=== PATIENT | female | born 1975 | race Caucasian/White ===

== ENCOUNTER 2020-07-12 15:56 | Outpatient (REF) | payer BC, SELFPAY ==
--- NOTE | 2020-07-12 | MM_ITS ---
EXAMINATION: MM SCREENING DIGITAL BREAST TOMOSYNTHESIS, BILATERAL CLINICAL INFORMATION: Screening. Asymptomatic. The lifetime risk of breast cancer based on the Tyrer-Cuzick Model is 12%. COMPARISON: None. This is the patient's baseline mammographic examination. TECHNIQUE: Digital breast tomosynthesis is performed in both the craniocaudal and mediolateral oblique views along with computer-aided detection (CAD). Synthesized 2D images are generated from the tomosynthesis. FINDINGS: There are scattered areas of fibroglandular density (ACR BI-RADS breast composition Category b). Left breast: No suspicious masses, calcifications, architectural distortion, or other abnormalities are seen. Right breast: A 0.9 cm oval isodense mass is noted on the mediolateral oblique view tomosynthesis images (27 of 60) in the posterior third, 8 cm from nipple. It is likely present in the lateral breast. A second area of focal asymmetry/mass is noted in the lower inner quadrant anterior third. No suspicious calcifications or other abnormalities are seen. MM/MM tomosynthesis screening BI IMPRESSION: 1. No mammographic evidence of malignancy in the left breast. 2. Obscured mass and focal asymmetry in the right breast. ASSESSMENT: BI-RADS 0: Incomplete - Need Additional Imaging Evaluation. RECOMMENDATION: 1. Additional views of the right breast are recommended. Recommend spot compression right craniocaudal and spot compression right mediolateral oblique views utilizing tomosynthesis technique. 2. Targeted ultrasound if warranted after review of the additional views. 3. Radiology department staff will contact the patient for additional imaging. This patient's information was entered into a reminder system with a target due date for their next mammogram.
== END 2020-07-12 15:57 | disposition home or self-care (01) ==
LOC: HO.MAMMO 15:56
PROVIDERS: PCP Internal Medicine; Visit Provider Internal Medicine
DX: Z12.31 Encounter for screening mammogram for malignant neoplasm of breast (principal)
CPT/HCPCS: 77063; 77067

== ENCOUNTER 2020-07-13 09:08 | Day surgery (SDC) | payer BC, SELFPAY ==
[2020-07-06 14:49] VITALS: BMI 26.6
--- NOTE | 2020-07-12 10:52 | HO.ANESPROP2 ---
Documented by User: Lynda Smith 07/12/20 10:53 HPI - Anesthesia Eval Consult details Narrative: 45yo F for Colonoscopy: fam hx [facility] Past Medical History Medical History No significant past medical history Surgical History Surgical History Hx of section Social History Social History Smoking Status: Never smoker Use of substances other than those prescribed or required for medical reasons: No Have you been hit, kicked, punched, or otherwise hurt by someone within the past year? If so, by whom?: No Advance Directives: No Advance Directives Information Provided: No Advance Directives on File: No Recently lost weight without trying: No Meds Allergies Allergy/AdvReac Type Severity Reaction Status Date / Time No Known Allergies Allergy Mild NOT Unverified 07/06/20 14:48 APPLICABLE Home Medications Medication Instructions Recorded Confirmed Type No Known Home Meds 07/06/20 07/06/20 History Exam Exam Date and Time: July 12, 2020 1052 Height,Weight and Vital Signs: Height 5 ft 5 in Weight 72.575 kg Assessment and Plan Assessment Anesthesia Assessment: Chart Reviewed Documented by User: Rolando Herrera 07/13/20 10:47 [facility] Past Medical History Medical History No significant past medical history Surgical History Surgical History Hx of section Social History Social History Smoking Status: Never smoker Use of substances other than those prescribed or required for medical reasons: No Have you been hit, kicked, punched, or otherwise hurt by someone within the past year? If so, by whom?: No Advance Directives: No Advance Directives Information Provided: No Advance Directives on File: No Recently lost weight without trying: No Meds Allergies Allergy/AdvReac Type Severity Reaction Status Date / Time No Known Allergies Allergy Mild NOT Unverified 07/06/20 14:48 APPLICABLE Home Medications Medication Instructions Recorded Confirmed Type No Known Home Meds 07/06/20 07/06/20 History Exam Airway Mallampati Class: II TM Dist: >3cm Neck ROM: Full Loose/Missing/Broken Teeth: No Heart: [id number] Lungs: cta b/l Assessment and Plan Assessment Anesthesia Assessment: Anesthesia Plan Discussed, Smoking Cess. Discussed, PAT Visit and Chart Reviewed Final Anesthetic Review NPO: Yes ASA Class: II Final Preanesthetic Review: No Changes in Pt Med Stat, Consent Obtained/Reviewed and Anes Risks/Benef Reviewed Patient Risk: Low Procedure Risk: Low Assessment/Block/Sedation in SS: Assess/Block/Sedation-SS Anesthetic Plan Anesthetic Plan: MAC: Disposition: Standard PACU
[2020-07-13 10:25] VITALS: BP 110/76; PULSE 87; RESP 20; TEMP 37; O2SAT 99; BMI 19.1
[2020-07-13 10:34] LABS: UPreg QC Valid YES; Urine Pregnancy NEGATIVE (NEGATIVE)
--- NOTE | 2020-07-13 10:46 | MHC.SHP ---
Pre-Procedural Eval Section A The patient is an INPATIENT: No The History & Physical has been completed within 30 days and I have reviewed it.: No Section B Chief Complaint: Colon cancer screening, FAMILY HX OF COLON POLYPS Details of Present Illness: A 45-year-old female referred with family history of colon cancer -PGM at 60- Twin brother- had 2 adenoma-as well as her mother has had colon polyps since age 50. She has no GI complaints. She has a good appetite, a normal bowel pattern. Relevant Family History (Specify if Yes): Yes Relevant Social History: None Present Medications: None Medical History: Significant History (Fatigue) Allergies: Allergies Allergy/AdvReac Type Severity Reaction Status Date / Time No Known Allergies Allergy Mild NOT Unverified 07/06/20 14:48 APPLICABLE Review of Systems Sugical H&P ROS: Negative: Constitution, Cardiovascular, Respiratory and Gastrointestinal Exam Surgical H&P Exam: Normal: Heart, Normal: Lungs, Normal: Extremities and Normal: Abdomen Plan Diagnosis/Plan: Unchanged Patient has been examined and remains a candidate for the planned procedure
[2020-07-13 11:48] VITALS: BP 98/50; PULSE 86; RESP 16; TEMP 36.3; O2SAT 100
[2020-07-13 12:06] VITALS: BP 99/60; PULSE 81; RESP 18; O2SAT 97
[2020-07-13 12:21] VITALS: BP 112/74; PULSE 76; RESP 18; O2SAT 100
--- NOTE | 2020-07-13 12:40 | HO.POSTANES ---
Post Anesthesia Evaluation Post Anesthesia Evaluation Vital Signs: Vital Signs Temp Pulse Resp BP Pulse Ox 07/13/20 12:21 97.3 F 76 18 112/74 100 07/13/20 12:06 81 18 99/60 97 07/13/20 11:48 97.3 F 86 16 98/50 L 100 07/13/20 10:25 98.6 F 87 20 110/76 99 Anesthesia: Monitored Mental Status: Awake Pain Control: Satisfactory Nausea/Vomiting: None Hydration: Adequate Anesthesia-Related Issues: No Anes. Related Issues
--- NOTE | 2020-07-13 17:43 | W.PM.OPN ---
Operative Note Operative Note Narrative: Date of procedure: 07/13/20 Pre-op diagnosis: Colon cancer screening, family history colon cancer and polyps. Post-op diagnosis: other (Diverticulosis, hemorrhoids) Procedure: COLONOSCOPY TILL CECUM Consent: Indications for the procedure and potential complications of bleeding, perforation, reaction to medications and missed diagnosis were discussed with the patient and informed consent was obtained. Instrument: Olympus PCF H 190 L variable stiffness pediatric colonoscope Monitoring: Vital signs and clinical assessment, intermittent blood pressure monitoring, continuous EKG monitoring, Pulse oximetry and Carbon Dioxide monitoring were done throughout the procedure. Colon withdrawl time was 24 minutes. Procedure: The patient was placed in the left lateral decubitis position and pre-procedure medications were administered. After a digital rectal examination of the ano-rectum, the video colonoscope was inserted into the rectum and advanced through the colon to the cecum. The colonoscope was slowly withdrawn in a retrograde panoramic fashion and the colon mucosa was carefully examined including a retroflexed view of the rectum. Findings and interventions are described below. Procedure Difficulty: Without difficulty Findings: Terminal Ileum: Not evaluated Cecum: Normal Ascending Colon: Normal Transverse Colon: Normal Descending Colon: Moderate diverticulosis Sigmoid Colon: Severe diverticulosis with luminal narrowing Rectum: Normal Ano-rectum: Moderate internal hemorrhoids Colon preparation: Good after copious irrigation Impression and Post Procedure Diagnosis: Colonoscopy Findings: No polyps were detected. Moderate to severe diverticulosis seen in the left colon Small hemorrhoids on retroflexed exam. Plan: Repeat Colonoscopy in 5 years for a family history colon cancer and colon polyps. Above findings were reviewed with the patient and a handout on diverticulosis was given in the discharge area Surgeon: Stefany Hughes MD Anesthesia: MAC (Deborah Gudino CRNA) Merchant Patroller: Jerry Davidson Estimated blood loss (mL): 0 Pathology: none sent Condition: stable Disposition: PACU
== END 2020-07-13 12:40 | disposition home or self-care (01) ==
PROVIDERS: Nurse Practitioner; Visit Provider Internal Medicine Gastroenterology
PROC: 0DJD8ZZ Inspection of Lower Intestinal Tract, Via Natural or Artificial Opening Endoscopic (ICD-10-PCS; CPT 45378; principal; 2020-07-13 11:30)
DX: Z12.11 Encounter for screening for malignant neoplasm of colon (principal); Z80.0 Family history of malignant neoplasm of digestive organs; Z83.71 Family history of colonic polyps; K57.30 Diverticulosis of large intestine without perforation or abscess without bleeding; K64.8 Other hemorrhoids
CPT/HCPCS: 45378; 81025

== ENCOUNTER 2020-07-27 14:25 | Outpatient (REF) | payer BC, SELFPAY ==
--- NOTE | 2020-07-27 | MM_ITS ---
EXAMINATION: MM DIAGNOSTIC DIGITAL BREAST TOMOSYNTHESIS, RIGHT US DIAGNOSTIC ULTRASOUND BREAST, RIGHT CLINICAL INFORMATION: Recall from baseline screening for 2 areas, possible mass lower inner quadrant and also posterior upper outer quadrant. TC score 12%. No known family history breast cancer. Age 45. COMPARISON: Mammography: 07/12/2020 (baseline). TECHNIQUE: Digital breast tomosynthesis is performed. 2D images are generated from the tomosynthesis. The following views are obtained: 3-D spot CC outer, 3-D spot CC inner, 3-D spot MLO upper, 3-D spot MLO lower. Ultrasound right breast is targeted to the lower inner quadrant and also the 9:00 to 10:00 position. Grayscale imaging and color Doppler are performed without and with harmonics. FINDINGS: There are scattered areas of fibroglandular density (ACR BI-RADS breast composition Category b). Additional views of the lower inner quadrant demonstrate fibroglandular densities without underlying mass or architectural abnormality. Additional views upper outer quadrant demonstrate smooth oval nodule with partly obscured margins measuring approximately 8 x 5 mm. Ultrasound upper outer quadrant demonstrates a circumscribed mildly hypoechoic nodule 9:00 position 8 cm from nipple measuring 0.7 x 0.4 cm. There is no increased or decreased through transmission of sound. No definite color flow. No architectural abnormality or focal duct ectasia. Finding may represent a benign fibroadenoma. Ultrasound lower inner quadrant demonstrates no cystic or solid mass, architectural abnormality, or focal duct ectasia. No ultrasound correlate. The parenchymal asymmetry on mammography may be reassessed at time of six-month follow-up mammography. Management: Results are discussed with the patient at time of visit. The finding upper outer quadrant is likely a benign fibroadenoma and may be reassessed in 6 months with right diagnostic mammography and follow-up targeted right breast ultrasound. The parenchymal asymmetry anterior lower inner quadrant is likely unremarkable fibroglandular tissue and may be reassessed again at time of follow-up mammography in 6 months. MM/MM tomosynthesis added view BI IMPRESSION: 1. Oval nodule 9:00 position measuring under 1 cm, suspect benign fibroadenoma. 2. Probable benign parenchymal asymmetry anterior lower inner quadrant. No ultrasound correlate. ASSESSMENT: BI-RADS 3: Probably Benign RECOMMENDATION: Diagnostic right mammography and targeted right breast ultrasound in 6 months. This patient's information was entered into a reminder system with a target due date for their next mammogram.
== END 2020-07-27 14:26 | disposition home or self-care (01) ==
LOC: HO.MAMMO 14:25
PROVIDERS: Visit Provider Internal Medicine
DX: R92.8 Other abnormal and inconclusive findings on diagnostic imaging of breast (principal)
CPT/HCPCS: 76642; 77062; 78016

== ENCOUNTER → 2020-08-04 08:26 | Outpatient (BNVA) | payer BC, SELFPAY | PROVIDERS: Visit Provider Physician Assistant | DX: Z76.89 Persons encountering health services in other specified circumstances (principal) ==

== ENCOUNTER 2020-09-25 07:23 | Outpatient (REF) | payer BC, SELFPAY | END 2020-09-25 07:24 | disposition home or self-care (01) | LOC: HO.LAB 07:23 | PROVIDERS: PCP Internal Medicine; Visit Provider Internal Medicine | DX: Z20.822 Contact with and (suspected) exposure to COVID-19 (principal) | CPT/HCPCS: 36415; C9803; U0003 ==

== ENCOUNTER 2021-03-02 10:50 | Outpatient (REF) | payer BC, SELFPAY ==
--- NOTE | ~2021-03-02 | MM_ITS ---
EXAMINATION: MM DIAGNOSTIC DIGITAL BREAST TOMOSYNTHESIS, RIGHT US DIAGNOSTIC ULTRASOUND BREAST, RIGHT CLINICAL INFORMATION: Short interval six-month follow-up probable benign parenchymal asymmetry lower inner right breast, and follow-up oval nodule 9:00 position likely fibroadenoma, both noted at initial baseline imaging. No known family history breast cancer. The lifetime risk of breast cancer based on the Tyrer-Cuzick Model is 12%. COMPARISON: Mammography: 07/27/2020, 07/12/2020 (baseline), targeted right breast ultrasound 07/27/2020. TECHNIQUE: Digital breast tomosynthesis is performed in both the craniocaudal and mediolateral oblique views along with computer-aided detection (CAD). Synthesized 2D images are generated from the tomosynthesis. Additional right spot MLO view obtained. Ultrasound right breast is targeted to the 7:00 through 11:00 position. Grayscale imaging and color Doppler are performed without and with harmonics. FINDINGS: There are scattered areas of fibroglandular density (ACR BI-RADS breast composition Category b). Parenchymal pattern is similar to baseline exam. There is no developing density or interval mass or architectural abnormality. No abnormal calcifications. Ultrasound demonstrates stable oval circumscribed hypoechoic nodule 9:00 position 8 cm from nipple measuring under 1 cm. This most likely represents fibroadenoma and will be reassessed again with targeted ultrasound at annual bilateral mammography, due in 6 months. Results are discussed with the patient at time of visit. MM/MM tomosynthesis diagnostic RT IMPRESSION: 1. There are no significant changes from baseline exam. No mammographic evidence of malignancy. 2. Stable circumscribed nodule 9:00 right breast, likely fibroadenoma. ASSESSMENT: BI-RADS 3: Probably Benign RECOMMENDATION: Diagnostic mammography and targeted right breast ultrasound at time of annual bilateral mammography, due in 6 months. This patient's information was entered into a reminder system with a target due date for their next mammogram.
== END 2021-03-02 10:51 | disposition home or self-care (01) ==
LOC: HO.MAMMO 10:50
PROVIDERS: Visit Provider Internal Medicine
DX: R92.2 Inconclusive mammogram (principal)
CPT/HCPCS: 76642; 77061; 77065

== ENCOUNTER 2021-05-03 08:43 | Outpatient (REF) | payer BC, SELFPAY ==
[2021-05-03 10:40] LABS: MANUAL DIFF FLAG NO
[2021-05-03 10:43] LABS: Basophils Percent Auto 0.9 % (0-2); Eosinophils Absolute Auto 0.1 X10*3/uL (0.0-0.4); Eosinophils Percent Auto 2.1 % (0-4); Hemoglobin 9.5 g/dl (12.0-16.0); Imm Gran Abs Auto 0.01 X10*3/uL (0.00-0.03); Imm Gran Pct Auto 0.3 % (0.0-0.4); Lymphocytes Absolute Auto 1.3 X10*3/uL (1.2-4.9); Lymphocytes Percent Auto 39.2 % (20-40); Mean Corpuscular HGB Conc 29.7 g/dl (31.0-35.0); Mean Corpuscular Hemoglobin 22.5 pg (27.0-33.0); Mean Corpuscular Volume 75.8 fL (80-98); Mean Platelet Volume 10.7 fL (9.4-12.3); Monocytes Absolute Auto 0.3 X10*3/uL (0.1-1.2); Monocytes Percent Auto 9.7 % (2-11); Neutrophils Absolute Auto 1.6 X10*3/uL (2.0-8.3); Neutrophils Percent Auto 47.8 % (45-73); Platelet Count 305 X10*3/uL (160-400); Red Blood Count 4.22 X10*6/uL (4.20-5.50); Red Cell Distribution Width 17.3 % (11.0-16.0); White Blood Count 3.3 X10*3/uL (4.8-10.8)
[2021-05-03 11:57] LABS: Alanine Aminotransferase 10 U/L (0-31); Albumin Level 4.1 g/dL (3.5-5.0); Alkaline Phosphatase 41 U/L (39-117); Anion Gap 13 (12-20); Aspartate Amino Transferase 15 U/L (5-31); Bilirubin Total 0.4 mg/dL (0.0-1.0); Blood Urea Nitrogen 13 mg/dL (9-16); Calcium 8.8 mg/dL (8.4-10.2); Carbon Dioxide 25 mmol/L (22-29); Chloride 107 mmol/L (96-108); Cholesterol 169 mg/dL; Estimated Glomerular Filt Rate > 60; Glucose Fasting 87 mg/dL (60-99); HDL Cholesterol 70 mg/dL; LDL Cholesterol Calculated 89 mg/dl; Potassium 3.9 mmol/L (3.3-5.1); Sodium 141 mmol/L (135-145); Total Protein 6.5 g/dL (6.5-8.0); Triglycerides 54 mg/dL
[2021-05-07 14:01] LABS: Vitamin D 25-OH, D2 <4 ng/mL; Vitamin D 25-OH, D3 44 ng/mL; Vitamin D 25-OH, Total 44 ng/mL (30-100)
== END 2021-05-03 08:44 | disposition home or self-care (01) ==
LOC: HO.WFDLDS 08:43
PROVIDERS: Visit Provider Internal Medicine
DX: E66.3 Overweight (principal); E78.5 Hyperlipidemia, unspecified; D64.9 Anemia, unspecified; E55.9 Vitamin D deficiency, unspecified
CPT/HCPCS: 36415; 80053; 80061; 82306; 85025

== ENCOUNTER 2021-09-06 12:49 | Outpatient (REF) | payer BC, SELFPAY ==
--- NOTE | ~2021-09-06 | MM_ITS ---
EXAMINATION: MM DIAGNOSTIC DIGITAL BREAST TOMOSYNTHESIS, BILATERAL US DIAGNOSTIC ULTRASOUND BREAST, RIGHT CLINICAL INFORMATION: Due for yearly. Also follow-up probable benign parenchymal asymmetry lower inner right breast and probable benign oval nodule 9:00 right breast, likely fibroadenoma. The lifetime risk of breast cancer based on the Tyrer-Cuzick Model is 12%. COMPARISON: Mammography: 03/02/2021, 07/27/2020, 07/12/2020 (baseline, BI-RADS 0); targeted ultrasound right breast 07/27/2020, 03/02/2021. TECHNIQUE: Digital breast tomosynthesis is performed in both the craniocaudal and mediolateral oblique views along with computer-aided detection (CAD). Synthesized 2D images are generated from the tomosynthesis. Ultrasound right breast is targeted to the outer quadrant 7:00 through 11:00 position. Grayscale imaging and color Doppler are performed without and with harmonics. FINDINGS: There are scattered areas of fibroglandular density (ACR BI-RADS breast composition Category b). Parenchymal pattern is similar to prior study. There is no interval developing density or mass or architectural abnormality. Parenchymal asymmetry inner right breast on CC view is stable from prior studies and now considered benign. The smooth oval nodule 9:00 right breast is less conspicuous, stable on ultrasound and now considered benign. There are no abnormal calcifications. The axilla and skin contours are unremarkable. Ultrasound right breast demonstrates smooth oval nodule under 1 cm 9:00 position approximately 8 cm from nipple. The size and contour are stable from prior studies. Finding is now considered to be benign. Statistically, this is likely a small fibroadenoma. Results are discussed with the patient at time of visit. MM/MM tomosynthesis screening BI IMPRESSION: No mammographic evidence of malignancy. Findings for follow-up on right are stable and now considered to be benign. ASSESSMENT: BI-RADS 2: Benign RECOMMENDATION: Routine annual mammography screening. This patient's information was entered into a reminder system with a target due date for their next mammogram.
== END 2021-09-06 12:50 | disposition home or self-care (01) ==
LOC: HO.MAMMO 12:49
PROVIDERS: PCP Internal Medicine; Visit Provider Internal Medicine
DX: N63.14 Unspecified lump in the right breast, lower inner quadrant (principal)
CPT/HCPCS: 76642; 77063; 77067

== ENCOUNTER 2023-02-22 11:33 | Outpatient (REF) | payer BC, SELFPAY ==
--- NOTE | ~2023-02-22 | MM_ITS ---
EXAMINATION: MM SCREENING DIGITAL BREAST TOMOSYNTHESIS, BILATERAL CLINICAL INFORMATION: Screening. Asymptomatic. The lifetime risk of breast cancer based on the Tyrer-Cuzick Model is 12%. COMPARISON: Mammography: 09/06/2021, 03/02/2021, 07/27/2020, 07/12/2020 (baseline); ultrasound right breast 09/06/2021 TECHNIQUE: Digital breast tomosynthesis is performed in both the craniocaudal and mediolateral oblique views along with computer-aided detection (CAD). Synthesized 2D images are generated from the tomosynthesis. FINDINGS: There are scattered areas of fibroglandular density (ACR BI-RADS breast composition Category b). There are no significant masses, abnormal calcifications, or other abnormalities. There are scattered minor asymmetries similar to prior studies. No architectural abnormality or developing density or significant change from prior studies. The axilla and skin contours are unremarkable. MM/MM tomosynthesis screening BI IMPRESSION: No mammographic evidence of malignancy. ASSESSMENT: BI-RADS 2: Benign RECOMMENDATION: Routine annual mammography screening. This patient's information was entered into a reminder system with a target due date for their next mammogram.
== END 2023-02-22 11:34 | disposition home or self-care (01) ==
LOC: HO.MAMMO 11:33
PROVIDERS: PCP Internal Medicine; Visit Provider Internal Medicine
DX: Z12.31 Encounter for screening mammogram for malignant neoplasm of breast (principal)
CPT/HCPCS: 77063; 77067

== ENCOUNTER 2023-05-16 17:16 | Outpatient (AMB) | payer BC, SELFPAY ==
[2023-05-16 17:19] VITALS: BP 118/82; BMI 26.8
--- NOTE | 2023-05-16 17:19 | MHC.PC.OV ---
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: No Accompanied by: Self / Same As Patient Allergies No Known Allergies Allergy (Mild, Verified 05/16/23 17:45) NOT APPLICABLE Medication List - Last Reconciled 05/16/23 by Krista Florian MD No Known Home Meds Tobacco use date assessed: 05/16/23 Dental Screening Dental Screen Date: 05/16/23 Did you have a dental visit in the last 12 months?: Yes Did you have a dental problem in the last 6 months where you did not have access to dental care?: No Was dental information given to patient?: Patient has dentist HPI HPI Comments History of Present Illness Details This is a 48-year-old female that comes for her physical exam. Last mammogram was done April 2023 and was normal. Last colonoscopy was 2019 and she has family history of colon cancer therefore next colonoscopy should be 2024. She will call [facility] for her Pap smear. No chest pain or shortness of breath. No fever or cough. [facility] Medical History (Updated 05/04/22 @ 16:29 by Krista Florian MD) Hypovitaminosis D Overweight (BMI 25.0-29.9) Surgical History History of ankle surgery Hx of section Family History Mother Adenomatous colon polyp Bladder cancer Maternal Grandmother Colon cancer Brother Adenomatous colon polyp Maternal Grandfather Mental health disorder Father Substance use disorder Social History Household Members: Spouse and Children Housing: House Alcohol intake: current Alcohol intake frequency: a few times a week Alcohol type: wine and other Patient Tobacco Use Status: Never used Tobacco e-Cigarette/Vaping Use: Never Used Second Hand Smoke Exposure: No service: No Current occupational status: employed 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 1. Little interest or pleasure in doing things: not at all 2. Feeling down, depressed, or hopeless: not at all 3. Trouble falling or staying asleep, or sleeping too much: not at all 4. Feeling tired or having little energy: not at all 5. Poor appetite or overeating: not at all 6. Feeling bad about yourself - or that you are a failure or have let yourself or your family down: not at all 7. Trouble concentrating on things, such as reading the newspaper or watching television: not at all 8. Moving or speaking so slowly that other people could have noticed. Or the opposite - being so fidgety or restless that you have been moving around a lot more than usual: not at all 9. Thoughts that you would be better off or of hurting yourself in some way: not at all Total score: 0 Depression Screening Interpretation: Negative 63466 - PHQ-9 Billing: Yes Source: Developed by Drs. Eliu Lugo, Alexia Goins, Reggie Kim and colleagues, with an educational roldan from [email or web address]. Thrive Questionnaire Date Thrive assessed: 05/16/23 I am a: Patient What is your living situation today?: I have a steady place to live Within the past 12 months, did the food you bought not last and you didn't have the money to get more?: Never true Within the past 12 months, did you worry whether your food would run out before you got money to buy more?: Never true Do you have trouble paying for medicines?: No Do you have trouble getting transportation to medical appointments?: No Do you have trouble paying your heating and electricity bill?: No Do you have trouble taking care of your child, family member or friend?: No Do you have trouble with day-to-day activities such as bathing, preparing meals, shopping, managing finances, etc.?: No Are you currently unemployed and looking for a job?: No Are you interested in more education?: No Please select the resources that you would like help with: None Currently or been in a relationship where the following occur: no concerns reported AUDIT C Alcohol Use Questionnaire (AUDIT-C) 1. How often do you have a drink containing alcohol?: 2-3 times a week 2. How many drinks containing alcohol do you have on a typical day when you are drinking?: 1 or 2 3. How often do you have six or more drinks on one occasion?: Never Total Score: 3 Score Reviewed/Action Taken: No ROGER-7 AMB Questionnaire ROGER-7 Date ROGER - 7 assessed: 05/16/23 Feeling nervous, anxious, or on edge: 0 = Not at all Not being able to stop or control worryin = Not at all Worrying too much about different things: 0 = Not at all Trouble relaxin = Not at all Being so restless that it is hard to sit still: 0 = Not at all Becoming easily annoyed or irritable: 0 = Not at all Feeling afraid as if something awful might happen: 0 = Not at all Total ROGER-7 score (0-4 normal; 5-9 mild; 10-14 moderate; 15-21 severe): 0 Source: Developed by Drs. Eliu Lugo, Alexia Goins, Reggie Kim and colleagues, with an educational roldan from [email or web address]. ROGER-7 Assessment Billing ROGER-7 Assessment Tool: ROGER-7 Assessment 83060 Review of Systems Const All systems reviewed & are unremarkable except as noted in HPI and below Eyes Reports no additional complaints, Denies change in vision and Denies other visual disturbances Card Denies chest pain at rest, Denies chest pain with activity, Denies edema, Denies irregular heart rhythm, Denies claudication, Denies dyspnea, Denies dyspnea on exertion, Denies orthopnea, Denies paroxysmal nocturnal dyspnea and Denies slow heart rate Resp Denies cough, Denies dyspnea and Denies dyspnea on exertion GI Denies abdominal pain, Denies change in bowel habits, Denies excessive flatus, Denies nausea and Denies vomiting Denies urinary incontinence, Denies urinary hesitancy and Denies urinary urgency Musc Denies abnormal gait, Denies atrophy, Denies deformity and Denies limited range of motion Skin/Breast Denies bleeding lesions, Denies changing lesions and Denies rash Neuro Denies abnormal gait and Denies lack of coordination Physical exam (Primary Care) Vital Signs: Last Vital Signs BP 118/82 05/16/23 17:19 BMI result Body Mass Index 26.8 Tobacco/Smoking Status: Tobacco use Status Tobacco use date assessed 05/16/23 05/16/23 17:23 Patient Tobacco Use Status Never used Tobacco 05/16/23 17:23 e-Cigarette/Vaping Use Never Used 05/16/23 17:23 PHQ-9: PHQ-9 Score PHQ-9: Total score 0 05/16/23 17:23 Depression Screening Interpretation: Negative Thrive Assessment: Date of Thrive Assessment Date Thrive assessed 05/16/23 05/16/23 17:23 Currently or been in a relationship where the following occur: no concerns reported Const Orientation/consciousness: patient oriented x3 HENMT Head: Yes normal to inspection, Yes normocephalic and Yes atraumatic Ears: external ears normal Eyes General: appearance normal, both eyes and all related structures Eyelids: Yes eyelids normal Conjunctivae: conjunctivae normal Neck Neck: Yes normal visual inspection and Yes supple Resp Effort & Inspection: normal respiratory effort Auscultation: clear to auscultation bilaterally Cardio Jugular venous distension: no JVD Rate: regular rate Rhythm: regular rhythm Heart sounds: S1 normal heart sound present and S2 normal heart sound present GI Inspection: Yes normal to inspection Palpation (GI): Soft to palpation and nontender Auscultation: normal bowel sounds Skin General skin exam: no rashes or lesions noted Neuro General: patient oriented x3 and no focal motor deficits Extrem General: Yes full ROM Psych Appearance: grossly normal Assessment and Plan Assessment & Plan (1) Encounter for physical examination: Code(s): Z00.00 - Encounter for general adult medical examination without abnormal findings Plan: Repeat in a year. Orders: Orders Comprehensive [place]. Panel Fast Today Z00.00 - Encounter for general adult medical examination without abnormal findings IRON PROFILE Today D64.9 - Anemia, unspecified Lipid Panel Today Z00.00 - Encounter for general adult medical examination without abnormal findings Vitamin D 25-OH Total Today E55.9 - Vitamin D deficiency, unspecified Complete Blood Count Auto Diff Today D64.9 - Anemia, unspecified Free T4 (Free Thyroxine) Today L65.9 - Nonscarring hair loss, unspecified Thyroid Stimulating Hormone Today L65.9 - Nonscarring hair loss, unspecified Coding Level of Care Code Est Pt Prev Care 40-64y(15879) Diagnoses Encounter for physical examination Z00.00 Additional Codes ROGER-7 Assessment Billing - ROGER-7 Assessment Tool: ORGER-7 Assessment [id number] ([id number]) Time Spent (min) 32
== END 2023-05-16 17:57 | disposition home or self-care (01) ==
PROVIDERS: PCP Internal Medicine; Visit Provider Internal Medicine
DX: Z00.00 Encounter for general adult medical examination without abnormal findings (principal)
CPT/HCPCS: 99396

== ENCOUNTER 2024-05-20 17:20 | Outpatient (AMB) | payer BC, SELFPAY ==
--- NOTE | 2024-05-20 17:28 | A.OFFPC_ITS ---
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 Required: No Accompanied by: Self / Same As Patient Allergies No Known Allergies Allergy (Mild, Verified 05/20/24 17:38) NOT APPLICABLE Medication List - Last Reconciled 05/20/24 by Krista Florian MD betamethasone dipropionate 0.05% 1 appl topical DAILY PRN 30 days Tobacco use date assessed: 05/20/24 Dental Screening Dental Screen Date: 05/20/24 Did you have a dental visit in the last 12 months?: No Did you have a dental problem in the last 6 months where you did not have access to dental care?: No Was dental information given to patient?: Patient has dentist HPI HPI Comments History of Present Illness Details This is a 49-year-old female that comes for her physical exam. Mammogram done 2022 was normal. Pap smear was done over 5 years ago but she already has an appointment at [facility]. Colonoscopy done 2019 and will be repeated 2024 due to family history of colon polyps. Complains of eczema and dry patch skin lesions and will be referred to Dermatology. Also has a dry cough that has been present for months and I will order an x-ray. [facility], [facility] Medical History (Updated 05/20/24 @ 17:50 by Krista Florian MD) Overweight (BMI 25.0-29.9) Hypovitaminosis D Surgical History History of ankle surgery Hx of section Family History Mother Adenomatous colon polyp Bladder cancer Maternal Grandmother Colon cancer Brother Adenomatous colon polyp Maternal Grandfather Mental health disorder Father Substance use disorder Social History Household Members: Spouse and Children Housing: House Alcohol intake: current Alcohol intake frequency: a few times a week Alcohol type: wine and other Patient Tobacco Use Status: Never used Tobacco e-Cigarette/Vaping Use: Never Used Second Hand Smoke Exposure: No service: No Current occupational status: employed 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 1. Little interest or pleasure in doing things: several days 2. Feeling down, depressed, or hopeless: several days 3. Trouble falling or staying asleep, or sleeping too much: several days 4. Feeling tired or having little energy: several days 5. Poor appetite or overeating: several days 6. Feeling bad about yourself - or that you are a failure or have let yourself or your family down: not at all 7. Trouble concentrating on things, such as reading the newspaper or watching television: several days 8. Moving or speaking so slowly that other people could have noticed. Or the opp osite - being so fidgety or restless that you have been moving around a lot more than usual: not at all 9. Thoughts that you would be better off or of hurting yourself in some way: not at all Total score: 6 Depression Screening Interpretation: Positive Depression Screening Follow-up: Existing condition and Follow-up Visit Requested Depression Screening Done: Yes 38365 - PHQ-9 Billing: Yes Source: Developed by Drs. Eliu Lugo, Alexia Goins, Reggie Kim and colleagues, with an educational roldan from [employer]. Thrive Questionnaire Date Thrive assessed: 05/20/24 I am a: Patient What is your living situation today?: I have a steady place to live Within the past 12 months, did the food you bought not last and you didn't have the money to get more?: Never true Within the past 12 months, did you worry whether your food would run out before you got money to buy more?: Never true Do you have trouble paying for medicines?: No Do you have trouble getting transportation to medical appointments?: No Do you have trouble paying your heating and electricity bill?: No Do you have trouble taking care of your child, family member or friend?: No Do you have trouble with day-to-day activities such as bathing, preparing meals, shopping, managing finances, etc.?: No Are you currently unemployed and looking for a job?: No Are you interested in more education?: No Please select the resources that you would like help with: None Currently or been in a relationship where the following occur: No concerns reported THRIVE Score: 0 AUDIT C Alcohol Use Questionnaire (AUDIT-C) 1. How often do you have a drink containing alcohol?: 2-3 times a week 2. How many drinks containing alcohol do you have on a typical day when you are drinking?: 3 or 4 3. How often do you have six or more drinks on one occasion?: Monthly Total Score: 6 ROGER-7 AMB Questionnaire ROGER-7 Date ROGER - 7 assessed: 05/20/24 Feeling nervous, anxious, or on edge: 0 = Not at all Not being able to stop or control worryin = Not at all Worrying too much about different things: 1 = Several days Trouble relaxin = Not at all Being so restless that it is hard to sit still: 0 = Not at all Becoming easily annoyed or irritable: 1 = Several days Feeling afraid as if something awful might happen: 0 = Not at all Total ROGER-7 score (0-4 normal; 5-9 mild; 10-14 moderate; 15-21 severe): 2 Source: Developed by Drs. Eliu Lugo, Alexia Goins, Reggie Kim and colleagues, with an educational roldan from [employer]. ROGER-7 Assessment Billing ROGER-7 Assessment Tool: ROGER-7 Assessment 33246 Review of Systems Const All systems reviewed & are unremarkable except as noted in HPI and below Card Denies chest pain at rest, Denies chest pain with activity, Denies edema, Denies irregular heart rhythm, Denies claudication, Denies dyspnea, Denies dyspnea on exertion, Denies orthopnea, Denies paroxysmal nocturnal dyspnea and Denies slow heart rate Resp Denies cough, Denies dyspnea and Denies dyspnea on exertion GI Denies abdominal pain, Denies change in bowel habits, Denies excessive flatus, Denies nausea and Denies vomiting Denies urinary incontinence, Denies urinary hesitancy and Denies urinary urgency Musc Denies atrophy, Denies deformity and Denies limited range of motion Physical exam (Primary Care) Vital Signs: Last Vital Signs BP 120/80 05/20/24 17:31 BMI result Body Mass Index 27.0 Tobacco/Smoking Status: Tobacco use Status Tobacco use date assessed 05/20/24 05/20/24 17:35 Patient Tobacco Use Status Never used Tobacco 05/20/24 17:35 e-Cigarette/Vaping Use Never Used 05/20/24 17:35 PHQ-9: PHQ-9 Score PHQ-9: Total score 6 05/20/24 17:39 Depression Screening Interpretation: Positive Depression Screening Follow-up: Existing condition and Follow-up Visit Requested Thrive Assessment: Date of Thrive Assessment Date Thrive assessed 05/20/24 05/20/24 17:35 Currently or been in a relationship where the following occur: No concerns reported [facility] Head: Yes normal to inspection, Yes normocephalic and Yes atraumatic Ears: external ears normal Eyes General: appearance normal, both eyes and all related structures Eyelids: Yes eyelids normal Conjunctivae: conjunctivae normal Neck Neck: Yes normal visual inspection and Yes supple Resp Effort & Inspection: normal respiratory effort Auscultation: clear to auscultation bilaterally Cardio Jugular venous distension: no JVD Rate: regular rate Rhythm: regular rhythm Heart sounds: S1 normal heart sound present and S2 normal heart sound present GI Inspection: Yes normal to inspection Palpation (GI): Soft to palpation and nontender Auscultation: normal bowel sounds Skin General skin exam: erythema Neuro General: no focal motor deficits Extrem General: Yes full ROM Psych Appearance: grossly normal Assessment and Plan Assessment & Plan (1) Encounter for physical examination: Code(s): Z00.00 - Encounter for general adult medical examination without abnormal findings Plan: Repeat in a year. (2) Eczema: Code(s): L30.9 - Dermatitis, unspecified Plan: Referred to dermatology. (3) Dry cough: Code(s): R05.8 - Other specified cough Plan: X-ray ordered. Orders: Orders Complete Blood Count Auto Diff Today D64.9 - Anemia, unspecified Lipid Panel Today E78.5 - Hyperlipidemia, unspecified IRON PROFILE Today D64.9 - Anemia, unspecified Thyroid Stimulating Hormone Today L65.9 - Nonscarring hair loss, unspecified XR chest 2V Today R05.8 - Other specified cough MM screening mammo BI Today Z12.31 - Encounter for screening mammogram for malignant neoplasm of breast Comprehensive [place]. Panel Fast Today Z00.00 - Encounter for general adult medical examination without abnormal findings Referrals Dermatology Referral L30.9 - Dermatitis, unspecified Coding Level of Care Code Est Pt Level 3 (80138) Est Pt Prev Care 40-64y(31568) Diagnoses Encounter for physical examination Z00.00 Eczema L30.9 Dry cough R05.8 Additional Codes ROGER-7 Assessment Billing - ROGER-7 Assessment Tool: ROGER-7 Assessment 02310 ([id number]) Time Spent (min) 34
[2024-05-20 17:31] VITALS: BP 120/80; BMI 27.0
== END 2024-05-20 17:52 | disposition home or self-care (01) ==
PROVIDERS: PCP Internal Medicine; Visit Provider Internal Medicine
DX: Z00.00 Encounter for general adult medical examination without abnormal findings (principal); L30.9 Dermatitis, unspecified; R05.8 Other specified cough
CPT/HCPCS: 99213; 99396

== ENCOUNTER 2024-06-02 16:27 | Outpatient (REF) | payer BC, SELFPAY ==
--- NOTE | ~2024-06-02 | MM_ITS ---
EXAMINATION: MM SCREENING DIGITAL BREAST TOMOSYNTHESIS, BILATERAL CLINICAL INFORMATION: Screening. Asymptomatic. COMPARISON: Mammography: Comparison is made with available priors TECHNIQUE: Digital breast mammography with tomosynthesis is performed in both the craniocaudal and mediolateral oblique views along with computer-aided detection (CAD). FINDINGS: The breasts are heterogeneously dense, which may obscure small masses (ACR BI-RADS breast composition Category c). There are no significant masses, abnormal calcifications, or other abnormalities. MM/MM tomosynthesis screening BI IMPRESSION: No mammographic evidence of malignancy. ASSESSMENT: BI-RADS BI-RADS 1 - Negative RECOMMENDATION: Routine annual mammography screening. 1 year F/U This examination should not preclude the clinical evaluation of a suspicious palpable abnormality. This patient's information was entered into a reminder system with a target due date for their next mammogram. Electronically signed by: Lilia Corrigan DO 06/13/2024 10:47 AM EDT
== END 2024-06-02 16:28 | disposition home or self-care (01) ==
LOC: HO.MAMMO 16:27
PROVIDERS: PCP Internal Medicine; Visit Provider Internal Medicine
DX: Z12.31 Encounter for screening mammogram for malignant neoplasm of breast (principal)
CPT/HCPCS: 77063; 77067

== ENCOUNTER → 2024-06-02 16:30 | Outpatient (BNV) | payer BC, SELFPAY | PROVIDERS: PCP Internal Medicine; Visit Provider Internal Medicine | DX: Z12.31 Encounter for screening mammogram for malignant neoplasm of breast (principal) | CPT/HCPCS: 77063; 77067 ==